=== PATIENT | male | born 1955 | race Caucasian/White ===

== ENCOUNTER 2017-10-09 10:26 | Emergency (ER) | payer MEDICARE, OTHER ==
[~2017-10-09] VITALS: Ht 182.9 cm; Wt 72.7 kg
[~2017-10-09 10:26] MED LIST: ALBU8HFA PO; IBUP-1984 PO; TRAM50TA2 PO
[2017-10-09 10:32] VITALS: BP 127/89
== END 2017-10-09 10:49 ==
LOC: ER 10:26
DX: Z02.89 Encounter for other administrative examinations (principal); I10 Essential (primary) hypertension; Z79.899 Other long term (current) drug therapy
CPT/HCPCS: 99283

== ENCOUNTER 2019-05-29 09:54 | Emergency (ER) | payer MEDICARE, OTHER ==
[~2019-05-29] VITALS: Ht 180.3 cm; Wt 77.0 kg
[2019-05-29 10:38] LABS: BASOPHILS # (AUTO) 0.1 X10'3 (0-0.2); EOSINOPHILS # (AUTO) 0.2 X10'3 (0-0.9); EOSINOPHILS % (AUTO) 2.4 % (0-6); HEMATOCRIT 50.6 % (42.0-52.0); HEMOGLOBIN 17.3 g/dl (14.0-17.9); LYMPHOCYTES # (AUTO) 2.7 X10'3 (1.1-4.8); LYMPHOCYTES % (AUTO) 30.2 % (21-51); MEAN CORPUSCULAR HEMOGLOBIN 34.2 PG (27.0-31.0); MEAN CORPUSCULAR HGB CONC 34.2 g/dL (33.0-36.5); MEAN PLATELET VOLUME 7.8 FL (7.4-10.4); MONOCYTES # (AUTO) 0.6 X10'3 (0-0.9); MONOCYTES % (AUTO) 7.1 % (2-12); NEUTROPHILS # (AUTO) 5.4 X10'3 (1.8-7.7); NEUTROPHILS % (AUTO) 59.3 % (42-75); PLATELET COUNT 231 X10'3 (140-440); RED BLOOD COUNT 5.06 X10'6 (4.70-6.10); RED CELL DISTRIBUTION WIDTH 13.3 % (11.5-14.5); WHITE BLOOD COUNT 9.1 X10'3 (4.5-11.0)
[2019-05-29 10:48] LABS: PARTIAL THROMBOPLASTIN TIME 28 SECONDS (22-32)
[2019-05-29] MEDS ORDERED: dexamethasone sod phosphate 10mg/ml inj IV STA (10:48)
[2019-05-29] MEDS ORDERED: albuterol 2.5 MG/3 ML nebule CONTNEB PRN (10:50)
[2019-05-29] MEDS ORDERED: magnesium 2GM in 50ml NS 50 ML IV ONE (10:50)
[2019-05-29] MEDS ORDERED: ALBU6.7H9 INH (10:54)
[2019-05-29] MEDS ORDERED: PRED10TA23 PO (10:54)
[2019-05-29 11:32] LABS: ALANINE AMINOTRANSFERASE 20 U/L (12-78); ALBUMIN 4.6 G/DL (3.4-5.0); ALBUMIN/GLOBULIN RATIO 1.3 (1.1-1.5); ALKALINE PHOSPHATASE 92 IU/L (46-116); ANION GAP 9 (8-16); ASPARTATE AMINO TRANSFERASE 11 U/L (10-37); BILIRUBIN,TOTAL 0.3 MG/DL (0.1-1.0); BLOOD UREA NITROGEN 8 MG/DL (7-18); BUN/CREATININE RATIO 8.8 (5.4-32.0); CALCIUM 9.4 MG/DL (8.5-10.1); CHLORIDE 107 MMOL/L (99-107); CREATININE 0.91 MG/DL (0.60-1.10); GLUCOSE 83 MG/DL (70-104); POTASSIUM 4.2 MMOL/L (3.5-5.1); SODIUM 145 MMOL/L (135-145); TOTAL PROTEIN 8.1 G/DL (6.4-8.2); eGFR 84 ML/MIN
[2019-05-29 13:15] VITALS: BP 123/76
== END 2019-05-29 13:16 | disposition home or self-care (01) ==
LOC: ER 09:54
DX: J44.1 Chronic obstructive pulmonary disease with (acute) exacerbation (principal); I10 Essential (primary) hypertension; G89.29 Other chronic pain; F17.200 Nicotine dependence, unspecified, uncomplicated; Z90.49 Acquired absence of other specified parts of digestive tract; Z79.899 Other long term (current) drug therapy
CPT/HCPCS: 36415; 71045; 80053; 83880; 85025; 85610; 85730; 93005; 96365; 96375; 99285; J1100; J3475; 94640; 94760

== ENCOUNTER 2019-11-24 09:19 | Emergency (ER) | payer MEDICARE, OTHER ==
[~2019-11-24] VITALS: Ht 180.3 cm; Wt 78.6 kg
[~2019-11-24 09:19] MED LIST changes: +ALBU6.7H9 INH
--- NOTE | 2019-11-24 09:45 | NUR ---
Visual acuity to be done on pt
[2019-11-24] MEDS ORDERED: DOXY100C43 PO (09:53)
[2019-11-24 10:04] VITALS: BP 128/93
== END 2019-11-24 10:05 | disposition home or self-care (01) ==
LOC: ER 09:20
DX: M25.561 Pain in right knee (principal); R51 Headache; J40 Bronchitis, not specified as acute or chronic; I10 Essential (primary) hypertension; J44.9 Chronic obstructive pulmonary disease, unspecified; G89.29 Other chronic pain; Z90.49 Acquired absence of other specified parts of digestive tract; W18.30XA Fall on same level, unspecified, initial encounter; Y93.89 Activity, other specified; Y92.89 Other specified places as the place of occurrence of the external cause; Y99.9 Unspecified external cause status
CPT/HCPCS: 99284

== ENCOUNTER 2021-03-03 11:19 | Emergency (ER) | payer MEDICARE, OTHER ==
[~2021-03-03] VITALS: Ht 180.3 cm; Wt 64.0 kg
[2021-03-03 12:54] LABS: ALANINE AMINOTRANSFERASE 19 U/L (12-78); ALKALINE PHOSPHATASE 90 IU/L (46-116); ANION GAP 5 (8-16); ASPARTATE AMINO TRANSFERASE 14 U/L (10-37); BILIRUBIN,TOTAL 0.5 MG/DL (0.1-1.0); BLOOD UREA NITROGEN 10 MG/DL (7-18); BUN/CREATININE RATIO 10.9 (5.4-32.0); CALCIUM 8.5 MG/DL (8.5-10.1); CHLORIDE 107 MMOL/L (99-107); CREATININE 0.92 MG/DL (0.60-1.10); GLUCOSE 96 MG/DL (70-104); POTASSIUM 4.2 MMOL/L (3.5-5.1); SODIUM 141 MMOL/L (135-145); TOTAL CARBON DIOXIDE 28.9 MMOL/L (24-32); TOTAL PROTEIN 6.1 G/DL (6.4-8.2); eGFR 82 ML/MIN
[2021-03-03 12:56] LABS: MAGNESIUM 2.2 MG/DL (1.5-2.4)
[2021-03-03 12:58] LABS: MEAN CORPUSCULAR HGB CONC 34.2 g/dL (33.0-36.5); PLATELET COUNT 206 X10'3 (140-440); RED BLOOD COUNT 3.88 X10'6 (4.70-6.10); WHITE BLOOD COUNT 5.2 X10'3 (4.5-11.0)
[2021-03-03 13:00] LABS: HEMATOCRIT 39.5 % (42.0-52.0); HEMOGLOBIN 13.5 g/dl (14.0-17.9); MEAN CORPUSCULAR HEMOGLOBIN 34.8 PG (27.0-31.0); MEAN CORPUSCULAR VOLUME 101.8 FL (78-98); MEAN PLATELET VOLUME 7.7 FL (7.4-10.4); RED CELL DISTRIBUTION WIDTH 14.7 % (11.5-14.5)
[2021-03-03 13:15] VITALS: BP 142/95
[2021-03-03 13:21] LABS: PLATELET ESTIMATE NORMAL; TOTAL CELLS COUNTED 100
[2021-03-03] MEDS ORDERED: predniSONE 20 mg tablet PO ONE (14:15)
[2021-03-03] MEDS ORDERED: ipratropium/albuterol 3ml nebule NEB ONE (14:15)
[2021-03-03] MEDS ORDERED: PRED20TA PO (14:52)
[2021-03-03] MEDS ORDERED: ALBU8HFA PO (14:52)
--- NOTE | 2021-03-03 15:48 | NUR ---
Pt given and understands d/c instructions. IV d/c'd, catheter was intact. Ambulatory with a steady gait.
== END 2021-03-03 15:51 | disposition home or self-care (01) ==
LOC: ER 11:19
DX: J44.9 Chronic obstructive pulmonary disease, unspecified (principal); Z20.822 Contact with and (suspected) exposure to COVID-19; R06.02 Shortness of breath; R09.02 Hypoxemia; I10 Essential (primary) hypertension; G89.29 Other chronic pain; Z90.89 Acquired absence of other organs; Z95.1 Presence of aortocoronary bypass graft; Z79.899 Other long term (current) drug therapy
CPT/HCPCS: 36415; 71046; 80053; 83605; 83735; 83880; 84484; 85007; 85025; 87040; 87635; 93005; 94640; 99285; C9803; J7512; 94760

== ENCOUNTER 2021-05-13 13:00 | Emergency (ER) | payer MEDICARE, OTHER ==
[~2021-05-13] VITALS: Ht 180.3 cm; Wt 60.0 kg
[2021-05-13 13:28] VITALS: BP 134/101
[2021-05-13] MEDS ORDERED: HYDR-3972 PO (14:31)
== END 2021-05-13 14:53 | disposition home or self-care (01) ==
LOC: ER 13:01
DX: M25.572 Pain in left ankle and joints of left foot (principal); I10 Essential (primary) hypertension; J44.9 Chronic obstructive pulmonary disease, unspecified; G89.29 Other chronic pain; Z90.49 Acquired absence of other specified parts of digestive tract; Z79.899 Other long term (current) drug therapy
CPT/HCPCS: 73560; 99283